=== PATIENT | female | born 1990 | race Caucasian/White ===

== ENCOUNTER → 2016-08-20 | Outpatient (CLI) | payer BC | LOC: LAB 14:24 → EDUNIT# 14:24 | PROVIDERS: ATTEND Obstetrics & Gynecology | DX: N91.4 Secondary oligomenorrhea (principal) | CPT/HCPCS: 36415; 84144; 84443; 84702 ==

== ENCOUNTER → 2016-08-20 | Outpatient (REF) | payer BC | LOC: EDUNIT# 14:20 → LAB 14:20 | PROVIDERS: ATTEND Obstetrics & Gynecology | DX: Z32.00 Encounter for pregnancy test, result unknown (principal) | CPT/HCPCS: 81025 ==